=== PATIENT | male | born 1985 | race Two or more races ===

== ENCOUNTER 2022-09-04 07:57 | Emergency (ER) | payer OTHER ==
[~2022-09-04] VITALS: Ht 177.8 cm; Wt 88.5 kg
--- NOTE | 2022-09-04 08:26 | NUR ---
Patient AOx4, able to express his concerns. Patient with no signs of distress.
--- NOTE | 2022-09-04 08:39 | NUR ---
EMD AT BEDSIDE FOR EVAL . AWAITNG FOR ORDERS
[2022-09-04] MEDS ORDERED: IBUPROFEN 200 MG TABLET ONE (08:42)
[2022-09-04] MEDS ORDERED: IBUPROFEN 600 MG TABLET ONE (08:43)
[2022-09-04] MEDS ORDERED: IBUPROFEN 400 MG TABLET PO ONE (09:00)
[2022-09-04] MEDS ORDERED: IBUP-1957 PO (10:27)
[2022-09-04 10:30] VITALS: BP 135/86
== END 2022-09-04 10:40 | disposition home or self-care (01) ==
LOC: ER 08:02
DX: M54.2 Cervicalgia (principal); M54.50 Low back pain, unspecified; V43.52XA Car driver injured in collision with other type car in traffic accident, initial encounter; Y93.89 Activity, other specified; Y92.411 Interstate highway as the place of occurrence of the external cause; Y99.8 Other external cause status
CPT/HCPCS: 72050-TC; 72110-TC